=== PATIENT | male | born 1935 | race Caucasian/White ===

== ENCOUNTER 2017-11-22 09:11 | Outpatient (CLI) | payer MEDICARE, SELFPAY ==
[2017-11-22 10:09] LABS: INR 2.8 (1.0-3.5); Prothrombin Time 26.6 sec (9.3-10.8)
== END 2017-11-22 09:31 ==
PROVIDERS: Visit Provider Internal Medicine
DX: I48.91 Unspecified atrial fibrillation (principal); Z79.01 Long term (current) use of anticoagulants
CPT/HCPCS: 36415; 85610

== ENCOUNTER 2017-11-23 05:03 | Emergency (ER) | payer MEDICARE, OTHER, SELFPAY ==
[2017-11-23 05:12] VITALS: BP 151/90; PULSE 102; RESP 18; TEMP 36.7; O2SAT 94
[2017-11-23 05:20] VITALS: RESP 18
--- NOTE | 2017-11-23 05:51 | ED.GENADUL_ITS ---
Discharge Plan Disposition Patient Disposition: HOME Condition: Stable Discharge Details Chief Complaint: GenMedical Clinical Impression: Constipation ED Provider: Aisha Lei Home Meds and New Rx's Prescriptions: Continue metformin 500 mg Tablet 500 mg PO BID RF: 0 diltiazem HCl 120 mg Capsule,Extended Release 24 Hr 120 mg PO DAILY RF: 0 warfarin 5 mg Tablet 5 mg PO DAILY RF: 0 montelukast 10 mg Tablet 10 mg PO DAILY RF: 0 fluticasone 50 mcg/actuation [place],Suspension 50 mcg Intranasal DAILY RF: 0 metoprolol tartrate 25 mg Tablet 25 mg PO BID RF: 0 Discharge Instructions Instructions: Constipation (ED) Additional Instructions: Use either the suppository or magnesium citrate as directed. You can also consider another enema if needed. If you have no relief with either, you can try another option within several hours. Follow-up with your primary care doctor in 1 week for reevaluation. Follow-up with your scheduled colonoscopy next month. Return to the emergency department with any worsening or new concerning Discharge Data Discharge Physician: Aisha Lei Medical Decision Making 82-year-old M who presents to the ED with a complaint of constipation for the past 3 days. No history of abdominal surgeries. He denies fever, nausea, vomiting, abdominal pain, rectal pain or rectal bleeding. No relief with enema prior to arrival but states he does not feel that he did it right. Blood pressure hypertensive. Heart rate within normal limits. Afebrile. Patient appears nontoxic and in no acute distress. His abdomen is soft and nontender. Rectal exam revealed no hemorrhoids, no masses, no blood, no fecal impaction or stool in rectal vault. As he has no fever, vomiting, abdominal pain, he appears nontoxic, and abdomen is soft and nontender, I do not see indication for lab work or imaging. However due to patient's age, he was offered lab work and imaging, but he declines, stating he does not want this and does not feel like this is necessary. Patient was offered an enema, told it may take some time to have a bowel movement but he declines the enema. We will send patient home with glycerin suppositories and magnesium citrate. Patient was instructed to try one option first and then if no relief within a few hours, he may try another option. He was also recommended to try another enema as directed. States he mainly drinks coffee and has had a poor diet recently. Discussed with patient that drinking plenty of water, a balanced diet with fiber and help with constipation. We also discussed that his recent hospitalization, recently taking antibiotics for pneumonia, and traveling, also may have contributed to his constipation. Patient was instructed to return here immediately with any significant or worsening symptoms such as fever, vomiting or abdominal pain. HPI General Mode of arrival: ambulatory . Date/Time Provider Initiated Documentation: 11/23/17 05:30 . Limitations to Documentation: no limitations . Information obtained by: patient . HPI Narrative: 82-year-old male who presents with constipation for the past 3 days. States he normally does have a bowel movement every 2-3 days but states he is traveling and would like to have a bowel movement. No relief with enema at 3 AM this morning. He is traveling from [place] and staying here nearby and his brother's house in [place]. He is traveling back to their next week and has a planned colonoscopy next month. States he was hospitalized last month in [place] for his atrial fibrillation and was started on Cefdinir antibiotics for possible pneumonia. He was eventually told by his doctor that he did not have pneumonia but he had already finished the antibiotics. He denies fever, nausea, vomiting, abdominal pain, rectal pain or rectal bleeding. He denies any history of abdominal surgeries. Past medical history: A. fib, TIA, diabetes Surgical history: Knee surgery, prostate surgery Social history: Former tobacco smoker, former alcohol use, denies drugs Medications: Coumadin, diltiazem, metformin, Toprol, Singulair, Cartia Allergies: None Related Data Home Medications Medication Instructions Recorded Confirmed diltiazem HCl 120 mg PO DAILY 11/23/17 11/23/17 fluticasone 50 mcg INTRANASAL DAILY 11/23/17 11/23/17 metformin 500 mg PO BID 11/23/17 11/23/17 metoprolol tartrate 25 mg PO BID 11/23/17 11/23/17 montelukast 10 mg PO DAILY 11/23/17 11/23/17 warfarin 5 mg PO DAILY 11/23/17 11/23/17 Allergies Allergy/AdvReac Type Severity Reaction Status Date / Time No Known Allergies Allergy Unverified 11/23/17 05:25 General Stated Complaint: GenMedical LUCITA: 3 Review of Systems Review of Systems All systems reviewed & are unremarkable except as noted in HPI and below Constitutional Reports as per HPI, Denies chills and Denies fever(s) Eyes Denies blurry vision ENT Denies dizziness, Denies sore throat and Denies throat swelling Cardiovascular Denies chest pain and Denies dyspnea Respiratory Denies dyspnea Gastrointestinal Denies abdominal pain, Reports constipation, Denies diarrhea and Denies vomiting Genitourinary Denies hematuria and Denies dysuria Musculoskeletal Denies back pain and Denies numbness Integumentary/Breasts Denies lesions and Denies rash Neurologic Denies dizziness and Denies numbness Allergic/Immunologic Denies throat swelling PFSH Social History Smoking/Tobacco Use Status: Former Tobacco Use Exam Const General: cooperative, healthy appearing and no acute distress HENMT Head: normal to inspection Mouth: oral mucosae normal Eyes General: appearance normal, both eyes and all related structures Neck Neck: normal visual inspection Resp Effort & Inspection: normal respiratory effort and able to speak in complete sentences Auscultation: clear to auscultation bilaterally Cardio Rate: regular rate Rhythm: regular rhythm GI Inspection: normal to inspection Palpation: soft, not firm, no masses and nontender Rectal Exam - female: visual inspection normal, normal sphincter tone, No fecal impaction, No hemorrhoids, No lesions, No mass and No tenderness Skin General skin exam: no rashes or lesions noted Neuro General: alert, awake and oriented x3 Motor: muscle tone normal throughout Extrem General: normal to inspection and full ROM Psych Appearance: grossly normal Affect: normal affect Course Vital Signs Temperature 98.1 F 11/23/17 05:12 Pulse 102 H 11/23/17 05:12 Respiratory Rate 18 11/23/17 05:12 Blood Pressure 151/90 H 11/23/17 05:12 Pulse Oximetry 94 L 11/23/17 05:12 Temperature 98.1 F 11/23/17 05:12 Temperature Source Temporal Artery Scan 11/23/17 05:12 Pulse 102 H 11/23/17 05:12 Respiratory Rate 18 11/23/17 05:20 Respiratory Effort 11/23/17 05:20 Respiratory Depth Normal 11/23/17 05:20 Respiratory Pattern Normal 11/23/17 05:20 Blood Pressure 151/90 H 11/23/17 05:12 Pulse Oximetry 94 L 11/23/17 05:12 Oxygen Delivery Method Room Air 11/23/17 05:12 Oxygen Flow Rate 0 11/23/17 05:12 Pain Level 0 11/23/17 05:12
[2017-11-23] MEDS: Magnesium Citrate 300 ML BTL PO (06:17)
[2017-11-23 06:24] VITALS: BP 143/84; PULSE 106; RESP 18; O2SAT 94
== END 2017-11-23 06:49 | disposition home or self-care (01) ==
LOC: ER 06:48
PROVIDERS: Emergency Provider Physician Assistant
DX: K59.00 Constipation, unspecified (principal); E11.9 Type 2 diabetes mellitus without complications; Z79.84 Long term (current) use of oral hypoglycemic drugs
CPT/HCPCS: 99283